=== PATIENT | male | born 1960 ===

== ENCOUNTER 2017-08-01 20:31 | Inpatient (IN) | payer SELFPAY ==
--- NOTE | 2017-08-01 21:30 | ED PDOC ---
HPI: Psych/Substance Abuse Time Seen by Provider: 08/01/17 20:43 Chief Complaint (Nursing): Alcohol Ingestion Chief Complaint (Provider): Alcohol ingestion History Per: Patient History/Exam Limitations: no limitations Onset/Duration Of Symptoms: Hrs (today) Current Symptoms Are (Timing): Still Present Suicide/Self Injury Attempted (Context): None Modifying Factor(s): Alcohol Pain Scale Rating Of: 0 Associated Symptoms: denies: Suicidal Thoughts, Suicidal Plan Additional Complaint(s): Nick Newberry is a 56 year old male, with no significant past medical history , who was brought to the emergency department via EMS for public alcohol intoxication. Per EMS, patient was found sleeping on the street with a bottle of vodka next to him. He admits drinking alcohol yesterday, none today. He admits that he drinks daily. He denies any fever, chills, chest pain, shortness of breath, abdominal pain, nausea, vomit, or diarrhea. No further medical complaints. PMD: Kulwant Villafuerte Past Medical History Reviewed: Historical Data, Nursing Documentation, Vital Signs Vital Signs: Last Vital Signs Temp 98.4 F 08/01/17 20:37 Pulse 140 H 08/01/17 20:37 Resp 20 08/01/17 20:37 BP 130/94 H 08/01/17 20:37 Pulse Ox 99 08/01/17 20:37 - Medical History PMH: Anxiety, Depression - Surgical History Surgical History: No Surg Hx - Family History Family History: States: Unknown Family Hx - Home Medications Home Medications: Ambulatory Orders Medication Instructions Recorded Unobtainable 02/24/16 - Allergies Allergies/Adverse Reactions: Allergies Allergy/AdvReac Type Severity Reaction Status Date / Time No Known Allergies Allergy Verified 02/24/16 06:30 Review of Systems ROS Statement: Except As Marked, All Systems Reviewed And Found Negative Constitutional: Negative for: Fever, Chills Cardiovascular: Negative for: Chest Pain Respiratory: Negative for: Shortness of Breath Gastrointestinal: Negative for: Nausea, Vomiting, Abdominal Pain, Diarrhea Physical Exam - Reviewed Nursing Documentation Reviewed: Yes Vital Signs Reviewed: Yes - Physical Exam Comments: GENERAL APPEARANCE: Patient is awake, alert, oriented x 3, in no acute distress. Ill kempt with ETOH odor noted. No slurred speech. SKIN: Warm, dry; (-) cyanosis HEAD: (+) hematoma to the occipital scalp, (-) scalp tenderness. EYES: (-) conjunctival pallor, (-) scleral icterus, (-) nystagmus. ENMT: Mucous membranes dry. Airway patent: (-) stridor. NECK: (-) tenderness, (-) stiffness, (-) lymphadenopathy. CHEST AND RESPIRATORY: (-) rales, (-) rhonchi, (-) wheezes; breath sounds equal. CARDIAC : (+) Tachycardic. ABDOMEN: Soft, (-) distention, (-) tenderness, (-) guarding. EXTREMITIES : (+) FROM, (+) fine tremors noted to b/l hands. (+) Distal pulses. NEURO AND PSYCH: Mental status as above.Affect: Calm and cooperative. stull hewer: Intact. Pupils equal and reactive; EOMI; (-) facial asymmetry; tongue and uvula midline. Strength symmetric. Gait is unsteady. - Laboratory Results Result Diagrams: 08/01/17 22:38 08/01/17 22:38 - ECG O2 Sat by Pulse Oximetry: 99 (RA) Pulse Ox Interpretation: Normal Medical Decision Making Medical Decision Making: Previous records reviewed, patient has been in the ER for ETOH intoxication. Initial Impression: Alcohol withdrawal Initial Plan: --Labs --CT head --IV --media monitor --Ativan 1 mg IV --Banana bag IV --UA --UDS --reevaluation Patient noted to have a hematoma to the occipital scalp, he admits that he fell earlier today, unable to elaborate how, when and why he fell. CT head ordered. Labs reviewed : etoh is 372, LFT's mildly elevated, pt noted to have an anion gap. UA & UDS pending. On reevaluation patient remains AAOx3 in no acute distress. VS : P 134 BP 166/ 121 O2sat 93%RA. ER MD Dr. Salinas made aware of labs, vitals and patient's status. CT head results still pending. Case endorsed to ER MD Dr. Salinas at [phone]. ~ Scribe Attestation: Documented by Flaco Costa, acting as a scribe for Lorrie Saunders PA-C. Provider Scribe Attestation: All medical record entries made by the Scribe were at my direction and personally dictated by me. I have reviewed the chart and agree that the record accurately reflects my personal performance of the history, physical exam, medical decision making, and the department course for this patient. I have also personally directed, reviewed, and agree with the discharge instructions and disposition. Disposition - Clinical Impression Clinical Impression: Alcohol abuse with intoxication - Disposition Disposition: Transfer of Care (to Dr. Salinas) Disposition Time: 23:30 Condition: FAIR Forms: [facility] ([place]) - PA / [employer]NER / Resident Statement MD/DO has reviewed & agrees with the documentation as recorded.
[2017-08-01] MEDS ORDERED: Multivitamin (MVI) 10 ML, Thiamine 100 MG, Folic Acid 1 MG in Sodium Chloride 0.9% 1,00... IV ONE (21:56)
[2017-08-01 22:41] LABS: BASO % 0.4 % (0.0-2.0); HEMOGLOBIN 15.3 g/dL (12.0-18.0); LYMPH # 0.6 K/uL (1.0-4.3); LYMPH % 5.4 % (20.0-40.0); MEAN CELL VOLUME 88.8 fl (80.0-94.0); MEAN CORPUSCULAR HEMOGLOBIN 30.6 pg (27.0-31.0); MEAN CORPUSCULAR HGB CONC 34.4 g/dL (33.0-37.0); MEAN PLATELET VOLUME 8.9 fl (7.2-11.7); MONO # 0.5 K/uL (0.0-0.8); MONO % 4.2 % (0.0-10.0); NEUT # 10.5 K/uL (1.8-7.0); NRBC % 0.1 % (0.0-0.0); PLATELET COUNT 205 K/uL (130-400); RBC 5.01 Mil/uL (4.40-5.90); RED CELL DISTRIBUTION WIDTH 16.1 % (11.5-14.5); WHITE BLOOD COUNT 11.7 K/uL (4.8-10.8)
[2017-08-01 23:04] LABS: ALB/GLOB RATIO 1.4 (1.0-2.1); ALBUMIN 4.7 g/dL (3.5-5.0); ALT/SGPT 110 U/L (21-72); AST/SGOT 151 U/L (17-59); BLOOD UREA NITROGEN 5 mg/dl (9-20); GFR AFRICAN-AMERICAN > 60; GFR NON-AFRICAN AMERICAN > 60
[2017-08-01 23:09] LABS: LYMPHOCYTE 6 % (20-50); MONOCYTE 2 % (0-10); NEUTROPHIL 92 % (42-75); PLATELET ESTIMATE NORMAL (NORMAL); TOTAL CELLS COUNTED 100
[2017-08-01] MEDS ORDERED: Sodium Chloride 0.9% 1,000 ML IV ONE (23:15)
--- NOTE | 2017-08-01 23:36 | CT ---
EXAM: CT Head Without Intravenous Contrast CLINICAL HISTORY: 56 years old, male; Injury or trauma; Fall; Initial encounter; Concussion / head injury; Consciousness not specified; Injury details: Patient found on street, [facility] TECHNIQUE: Axial computed tomography images of the head/brain without intravenous contrast. All CT scans at this facility use one or more dose reduction techniques, viz.: automated exposure control; ma/kV adjustment per patient size (including targeted exams where dose is matched to indication; i.e. head); or iterative reconstruction technique. Coronal and sagittal reformatted images were created and reviewed. COMPARISON: CT HEAD OR BRAIN W/O CONT 2013-06-02 10:50 FINDINGS: Limitations: Motion artifact - mild. Brain: Minimal atrophy. No definite intracranial hemorrhage. No mass. Mild encephalomalacia within left parietal region. No definite edema. Ventricles: No hydrocephalus. Bones/joints: No acute fracture. Craniotomy. Soft tissues: RIGHT parietal soft tissue swelling. Punctate calcification or foreign body along soft tissue swelling. Sinuses: Scattered minimal mucosal thickening. Mastoid air cells: No mastoid effusion. Orbits: Unremarkable as visualized. IMPRESSION: 1. No definite intracranial hemorrhage. 2. Incidental/non-acute findings are described above.
[2017-08-02 00:14] LABS: BENZODIAZEPINES, UR NEGATIVE (NEGATIVE)
[2017-08-02 00:25] LABS: SQUAMOUS EPITHIAL < 1 /hpf (0-5); URINE BACTERIA RARE (<OCC); URINE BILIRUBIN NEGATIVE (NEGATIVE); URINE CLARITY CLEAR (Clear); URINE COLOR COLORLESS (YELLOW); URINE GLUCOSE (UA) NEG (Normal); URINE LEUKOCYTE ESTERASE NEG Leu/uL (Negative); URINE NITRATE NEGATIVE (NEGATIVE); URINE PROTEIN NEGATIVE (NEGATIVE); URINE UROBILINOGEN 0.2-1.0 mg/dL (0.2-1.0)
[2017-08-02 00:26] LABS: BARBITURATES, UR NEGATIVE (NEGATIVE); OPIATES, UR NEGATIVE (NEGATIVE); PHENCYCLIDINE, UR NEGATIVE (NEGATIVE)
[2017-08-02 00:28] LABS: URINE BLOOD NEGATIVE (NEGATIVE)
--- NOTE | 2017-08-02 01:00 | CT ---
EXAM: CT Cervical Spine Without Intravenous Contrast CLINICAL HISTORY: 56 years old, male; Injury or trauma; Fall; Initial encounter; Blunt trauma TECHNIQUE: Axial computed tomography images of the cervical spine without intravenous contrast. All CT scans at this facility use one or more dose reduction techniques, viz.: automated exposure control; ma/kV adjustment per patient size (including targeted exams where dose is matched to indication; i.e. head); or iterative reconstruction technique. Coronal and sagittal reformatted images were created and reviewed. COMPARISON: No relevant prior studies available. FINDINGS: Vertebrae: No acute fracture. Facet osteoarthrosis within upper thoracic spine. Discs/spinal canal/neural foramina: Early degenerative disc disease within mid and lower cervical spine. No significant central canal stenosis. Mild neuroforaminal narrowing within lower cervical spine. Soft tissues: Unremarkable. Esophagus: Mild mural thickening versus underdistention proximal to midesophagus. Lung apices: Unremarkable as visualized. IMPRESSION: 1. No fracture. 2. Incidental/non-acute findings are described above.
[2017-08-02 06:19] LABS: HEMOGLOBIN 12.9 g/dL (12.0-18.0); MEAN CORPUSCULAR HEMOGLOBIN 30.3 pg (27.0-31.0); MEAN CORPUSCULAR HGB CONC 33.7 g/dL (33.0-37.0); RBC 4.27 Mil/uL (4.40-5.90); RED CELL DISTRIBUTION WIDTH 16.1 % (11.5-14.5)
[2017-08-02] MEDS: Dextrose 5%/0.9% NS 1,000 ML IV SCH ×2 (06:26→15:18)
[2017-08-02 06:53] LABS: ALB/GLOB RATIO 1.3 (1.0-2.1); ALBUMIN 3.5 g/dL (3.5-5.0); ALT/SGPT 99 U/L (21-72); AST/SGOT 91 U/L (17-59); BLOOD UREA NITROGEN 3 mg/dl (9-20); CALCIUM 7.8 mg/dL (8.4-10.2); GFR AFRICAN-AMERICAN > 60; GFR NON-AFRICAN AMERICAN > 60; MAGNESIUM 1.8 MG/DL (1.6-2.3)
[2017-08-02] MEDS: Thiamine 100 mg/ml Inj IM SCH (08:50)
[2017-08-02] MEDS: Enoxaparin 40 mg Syringe SC SCH (08:51)
[2017-08-02] MEDS: Pantoprazole 40 mg EC Tab PO SCH (08:51)
--- NOTE | 2017-08-02 09:21 | RAD ---
HISTORY: tachy COMPARISON: Chest radiograph dated 06/02/2013 FINDINGS: LUNGS: No active pulmonary disease. PLEURA: No significant pleural effusion identified, no pneumothorax apparent. CARDIOVASCULAR: Normal. OSSEOUS STRUCTURES: Unchanged. VISUALIZED UPPER ABDOMEN: Normal. OTHER FINDINGS: None. IMPRESSION: No active disease.
--- NOTE | 2017-08-02 18:11 | CP.PCM.HP ---
History of Present Illness - History of Present Illness History of Present Illness: a 56 year old male, with no significant past medical history, who was brought to the emergency department via EMS for public alcohol intoxication. Per EMS, patient was found sleeping on the street with a bottle of vodka next to him. He admits drinking alcohol yesterday, none today. He admits that he drinks daily. He denies any fever, chills, chest pain, shortness of breath, abdominal pain, nausea, vomit, or diarrhea. No further medical complaints. Present on Admission - Present on Admission Any Indicators Present on Admission: No Review of Systems - Review of Systems All systems: reviewed and no additional remarkable complaints except Past Patient History - Past Medical History & Family History Past Medical History?: Yes - Past Social History Smoking Status: Never Smoked - CARDIAC Hx Cardiac Disorders: No - PULMONARY Hx Respiratory Disorders: No - NEUROLOGICAL Hx Neurological Disorder: No - HEENT Hx HEENT Problems: No - RENAL Hx Chronic Kidney Disease: No - ENDOCRINE/METABOLIC Hx Endocrine Disorders: No - HEMATOLOGICAL/ONCOLOGICAL Hx Blood Disorders: No - INTEGUMENTARY Hx Dermatological Problems: No - MUSCULOSKELETAL/RHEUMATOLOGICAL Hx Falls: Yes - GASTROINTESTINAL Hx Gastrointestinal Disorders: No - GENITOURINARY/GYNECOLOGICAL Hx Genitourinary Disorders: No - PSYCHIATRIC Hx Substance Use: No - SURGICAL HISTORY Hx Surgeries: Yes Other/Comment: brain tumor removed 2 years ago - ANESTHESIA Hx Anesthesia: Yes Hx Anesthesia Reactions: No Meds Allergies/Adverse Reactions: Allergies Allergy/AdvReac Type Severity Reaction Status Date / Time No Known Allergies Allergy Verified 02/24/16 06:30 Physical Exam - Constitutional Appears: Well - Head Exam Head Exam: ATRAUMATIC, NORMAL INSPECTION, NORMOCEPHALIC - Eye Exam Eye Exam: EOMI, Normal appearance, PERRL Pupil Exam: NORMAL ACCOMODATION, PERRL - ENT Exam ENT Exam: Mucous Membranes Moist, Normal Exam - Neck Exam Neck exam: Positive for: Normal Inspection - Respiratory Exam Respiratory Exam: Clear to Auscultation Bilateral, NORMAL BREATHING PATTERN - Cardiovascular Exam Cardiovascular Exam: REGULAR RHYTHM - GI/Abdominal Exam GI & Abdominal Exam: Normal Bowel Sounds, Soft. absent: Tenderness - Extremities Exam Extremities exam: Positive for: normal inspection - Back Exam Back exam: NORMAL INSPECTION - Neurological Exam Neurological exam: Alert, CN II-XII Intact, Normal Gait, Oriented x3, Reflexes Normal - Psychiatric Exam Psychiatric exam: Normal Affect, Normal Mood - Skin Skin Exam: Dry, Intact, Normal Color, Warm Results - Vital Signs Recent Vital Signs: Last Vital Signs Temp 98.1 F 08/02/17 15:33 Pulse 112 H 08/02/17 15:33 Resp 20 08/02/17 15:33 BP 143/83 08/02/17 15:33 Pulse Ox 97 08/02/17 15:33 - Labs Result Diagrams: 08/04/17 04:30 08/04/17 04:30 Labs: Laboratory Results - last 24 hr 08/01/17 08/01/17 08/01/17 22:38 22:38 22:51 WBC 11.7 H RBC 5.01 Hgb 15.3 Hct 44.5 MCV 88.8 MCH 30.6 MCHC 34.4 RDW 16.1 H Plt Count 205 MPV 8.9 Neut % (Auto) 90.0 H Lymph % (Auto) 5.4 L [place] % (Auto) 4.2 Eos % (Auto) 0.0 Baso % (Auto) 0.4 Neut # (Auto) 10.5 H Lymph # (Auto) 0.6 L [place] # (Auto) 0.5 Eos # (Auto) 0.0 Baso # (Auto) 0.0 Neutrophils % (Manual) 92 H Lymphocytes % (Manual) 6 L Monocytes % (Manual) 2 Platelet Estimate Normal RBC Morphology Normal Sodium 140 Potassium 4.4 Chloride 92 L Carbon Dioxide 21 L Anion Gap 31 H BUN 5 L Creatinine 0.6 L Est GFR ( Amer) > 60 Est GFR (Non-Af Amer) > 60 POC Glucose (mg/dL) 85 Random Glucose 97 Calcium 9.0 Magnesium Total Bilirubin 1.1 AST 151 H ALT 110 H Alkaline Phosphatase 167 H Total Protein 8.1 Albumin 4.7 Globulin 3.4 Albumin/Globulin Ratio 1.4 Urine Color Urine Clarity Urine pH Ur Specific [place] Urine Protein Urine Glucose (UA) Urine Ketones Urine Blood Urine Nitrate Urine Bilirubin Urine Urobilinogen Ur Leukocyte Esterase Urine RBC (Auto) Ur Squamous Epith Cells Urine Bacteria Urine Opiates Screen Urine Methadone Screen Ur Barbiturates Screen Ur Phencyclidine Scrn Ur Amphetamines Screen U Benzodiazepines Scrn U Oth Cocaine Metabols U Cannabinoids Screen Alcohol, Quantitative 372 H* 02/26/18 02/26/18 02/27/18 23:55 23:55 05:40 WBC RBC Hgb Hct MCV MCH MCHC RDW Plt Count MPV Neut % (Auto) Lymph % (Auto) [place] % (Auto) Eos % (Auto) Baso % (Auto) Neut # (Auto) Lymph # (Auto) [place] # (Auto) Eos # (Auto) Baso # (Auto) Neutrophils % (Manual) Lymphocytes % (Manual) Monocytes % (Manual) Platelet Estimate RBC Morphology Sodium 142 Potassium 3.7 Chloride 100 Carbon Dioxide 24 Anion Gap 22 H BUN 3 L Creatinine 0.6 L Est GFR ( Amer) > 60 Est GFR (Non-Af Amer) > 60 POC Glucose (mg/dL) Random Glucose 85 Calcium 7.8 L Magnesium 1.8 Total Bilirubin 0.7 AST 91 H D ALT 99 H Alkaline Phosphatase 109 Total Protein 6.2 L Albumin 3.5 D Globulin 2.7 Albumin/Globulin Ratio 1.3 Urine Color Colorless Urine Clarity Clear Urine pH 7.0 Ur Specific [place] < 1.005 Urine Protein Negative Urine Glucose (UA) Neg Urine Ketones Negative Urine Blood Negative Urine Nitrate Negative Urine Bilirubin Negative Urine Urobilinogen 0.2-1.0 Ur Leukocyte Esterase Neg Urine RBC (Auto) < 1 Ur Squamous Epith Cells < 1 Urine Bacteria Rare Urine Opiates Screen Negative Urine Methadone Screen Negative Ur Barbiturates Screen Negative Ur Phencyclidine Scrn Negative Ur Amphetamines Screen Negative U Benzodiazepines Scrn Negative U Oth Cocaine Metabols Negative U Cannabinoids Screen Negative Alcohol, Quantitative 08/02/17 05:40 WBC 8.0 RBC 4.27 L Hgb 12.9 D Hct 38.4 MCV 90.0 MCH 30.3 MCHC 33.7 RDW 16.1 H Plt Count 150 MPV Neut % (Auto) Lymph % (Auto) [place] % (Auto) Eos % (Auto) Baso % (Auto) Neut # (Auto) Lymph # (Auto) [place] # (Auto) Eos # (Auto) Baso # (Auto) Neutrophils % (Manual) Lymphocytes % (Manual) Monocytes % (Manual) Platelet Estimate RBC Morphology Sodium Potassium Chloride Carbon Dioxide Anion Gap BUN Creatinine Est GFR ( Amer) Est GFR (Non-Af Amer) POC Glucose (mg/dL) Random Glucose Calcium Magnesium Total Bilirubin AST ALT Alkaline Phosphatase Total Protein Albumin Globulin Albumin/Globulin Ratio Urine Color Urine Clarity Urine pH Ur Specific [place] Urine Protein Urine Glucose (UA) Urine Ketones Urine Blood Urine Nitrate Urine Bilirubin Urine Urobilinogen Ur Leukocyte Esterase Urine RBC (Auto) Ur Squamous Epith Cells Urine Bacteria Urine Opiates Screen Urine Methadone Screen Ur Barbiturates Screen Ur Phencyclidine Scrn Ur Amphetamines Screen U Benzodiazepines Scrn U Oth Cocaine Metabols U Cannabinoids Screen Alcohol, Quantitative Assessment & Plan (1) Alcohol abuse with intoxication Assessment and Plan: Librium/Ativan/Thiamine/Folic Acid/IVF Monitor Electrolytes Status: Acute Priority: High
[2017-08-03] MEDS: Dextrose 5%/0.9% NS 1,000 ML IV SCH
[2017-08-03] MEDS: Thiamine 100 mg/ml Inj IM SCH (10:15)
[2017-08-03] MEDS: Enoxaparin 40 mg Syringe SC SCH (10:16)
[2017-08-03] MEDS: Pantoprazole 40 mg EC Tab PO SCH (10:16)
[2017-08-03 10:59] LABS: ALB/GLOB RATIO 1.4 (1.0-2.1); ALBUMIN 3.8 g/dL (3.5-5.0); ALT/SGPT 91 U/L (21-72); AST/SGOT 75 U/L (17-59); BLOOD UREA NITROGEN 4 mg/dl (9-20); GFR AFRICAN-AMERICAN > 60; GFR NON-AFRICAN AMERICAN > 60
[2017-08-03] MEDS: Potassium Chloride 20 mEq ER Tab PO SCH (13:00)
[2017-08-03] MEDS: Potassium Chl 20mEq & D5W 1,000 ML IV SCH ×2 (13:15→21:31)
[2017-08-03] MEDS ORDERED: levETIRAcetam 500 MG in Sodium Chloride 0.9% 100 ML IVPB ONE (19:06)
[2017-08-04 05:50] LABS: HEMOGLOBIN 13.9 g/dL (12.0-18.0); MEAN CELL VOLUME 90.6 fl (80.0-94.0); MEAN CORPUSCULAR HEMOGLOBIN 30.7 pg (27.0-31.0); MEAN CORPUSCULAR HGB CONC 33.8 g/dL (33.0-37.0); RBC 4.55 Mil/uL (4.40-5.90); WHITE BLOOD COUNT 6.4 K/uL (4.8-10.8)
[2017-08-04 06:40] LABS: BLOOD UREA NITROGEN 5 mg/dl (9-20); CALCIUM 9.3 mg/dL (8.4-10.2); GFR AFRICAN-AMERICAN > 60; GFR NON-AFRICAN AMERICAN > 60
[2017-08-04] MEDS: Potassium Chl 20mEq & D5W 1,000 ML IV SCH (07:47)
[2017-08-04] MEDS: levETIRAcetam 100 mg/ml (5ml) Oral Syringe PO SCH ×2 (09:40→17:42)
[2017-08-04] MEDS: Enoxaparin 40 mg Syringe SC SCH (09:42)
[2017-08-04] MEDS: Potassium Chloride 20 mEq ER Tab PO SCH (09:43)
[2017-08-04] MEDS: Pantoprazole 40 mg EC Tab PO SCH (09:45)
--- NOTE | 2017-08-04 22:08 | CP.PCM.PN ---
Subjective - Date & Time of Evaluation Date of Evaluation: 08/04/17 Time of Evaluation: 17:00 - Subjective Subjective: Feeling better. still shaky Objective - Vital Signs/Intake and Output Vital Signs (last 24 hours): Temp Pulse Resp BP Pulse Ox 98.3 F 104 H 19 112/63 98 08/04/17 21:15 08/04/17 21:15 08/04/17 21:15 08/04/17 21:15 08/04/17 21:15 - Medications Medications: Current Medications Chlordiazepoxide (Librium) 25 mg PO Q8 [facility] Last Admin: 08/04/17 17:44 Dose: 25 mg Clonidine HCl (Catapres) 0.1 mg PO BID [facility] Last Admin: 08/04/17 17:42 Dose: 0.1 mg Enoxaparin Sodium (Lovenox) 40 mg SC DAILY [facility] PRN Reason: Protocol Last Admin: 08/04/17 09:42 Dose: 40 mg Folic Acid 1 mg/ Sodium (Chloride) 100.2 mls @ 60 mls/hr IVPB DAILY [facility] Last Admin: 08/04/17 09:47 Dose: 60 mls/hr Levetiracetam (Keppra) 500 mg PO BID [facility] Last Admin: 08/04/17 17:42 Dose: 500 mg Lorazepam (Ativan) 2 mg IVP Q4 PRN PRN Reason: Seizure Activity,agitation Last Admin: 08/03/17 17:24 Dose: 2 mg Ondansetron HCl (Zofran Inj) 4 mg IVP Q6 PRN PRN Reason: Nausea/Vomiting Last Admin: 08/02/17 15:17 Dose: 4 mg Pantoprazole Sodium (Protonix Ec Tab) 40 mg PO DAILY [facility] Last Admin: 08/04/17 09:45 Dose: 40 mg Potassium Chloride (K-Dur 20 Meq Er Tab) 20 meq PO DAILY [facility] Last Admin: 08/04/17 09:43 Dose: 20 meq Thiamine HCl (Vitamin B1 Tab) 100 mg PO DAILY [facility] Last Admin: 08/04/17 09:45 Dose: 100 mg - Labs Labs: 08/04/17 04:30 08/04/17 04:30 Assessment and Plan (1) Alcohol abuse with intoxication Status: Acute
--- NOTE | 2017-08-05 00:09 | CP.PCM.PN ---
Subjective - Date & Time of Evaluation Date of Evaluation: 08/03/17 Time of Evaluation: 16:50 - Subjective Subjective: Confused. Attempted to leave the Hospital and on 1 to 1 obs Objective - Vital Signs/Intake and Output Vital Signs (last 24 hours): Temp Pulse Resp BP Pulse Ox 98.3 F 104 H 19 112/63 98 08/04/17 21:15 08/04/17 21:15 08/04/17 21:15 08/04/17 21:15 08/04/17 21:15 - Medications Medications: Current Medications Chlordiazepoxide (Librium) 25 mg PO Q8 [facility] Last Admin: 08/04/17 17:44 Dose: 25 mg Clonidine HCl (Catapres) 0.1 mg PO BID [facility] Last Admin: 08/04/17 17:42 Dose: 0.1 mg Enoxaparin Sodium (Lovenox) 40 mg SC DAILY [facility] PRN Reason: Protocol Last Admin: 08/04/17 09:42 Dose: 40 mg Folic Acid 1 mg/ Sodium (Chloride) 100.2 mls @ 60 mls/hr IVPB DAILY [facility] Last Admin: 08/04/17 09:47 Dose: 60 mls/hr Levetiracetam (Keppra) 500 mg PO BID [facility] Last Admin: 08/04/17 17:42 Dose: 500 mg Lorazepam (Ativan) 2 mg IVP Q4 PRN PRN Reason: Seizure Activity,agitation Last Admin: 08/03/17 17:24 Dose: 2 mg Ondansetron HCl (Zofran Inj) 4 mg IVP Q6 PRN PRN Reason: Nausea/Vomiting Last Admin: 08/02/17 15:17 Dose: 4 mg Pantoprazole Sodium (Protonix Ec Tab) 40 mg PO DAILY [facility] Last Admin: 08/04/17 09:45 Dose: 40 mg Potassium Chloride (K-Dur 20 Meq Er Tab) 20 meq PO DAILY [facility] Last Admin: 08/04/17 09:43 Dose: 20 meq Thiamine HCl (Vitamin B1 Tab) 100 mg PO DAILY [facility] Last Admin: 08/04/17 09:45 Dose: 100 mg - Labs Labs: 08/04/17 04:30 08/04/17 04:30 Assessment and Plan (1) Alcohol abuse with intoxication Assessment & Plan: Continue Current care Status: Acute
[2017-08-05] MEDS: Potassium Chloride 20 mEq ER Tab PO SCH (08:51)
[2017-08-05] MEDS: Enoxaparin 40 mg Syringe SC SCH (08:52)
[2017-08-05] MEDS: levETIRAcetam 100 mg/ml (5ml) Oral Syringe PO SCH (08:52)
[2017-08-05] MEDS: Pantoprazole 40 mg EC Tab PO SCH (08:53)
--- NOTE | 2017-08-05 18:54 | CP.PCM.PN ---
Subjective - Date & Time of Evaluation Date of Evaluation: 08/05/17 Time of Evaluation: 19:10 - Subjective Subjective: No complaint Objective - Vital Signs/Intake and Output Vital Signs (last 24 hours): Temp Pulse Resp BP Pulse Ox 98.5 F 94 H 20 116/80 97 08/05/17 16:27 08/05/17 16:27 08/05/17 16:27 08/05/17 16:27 08/05/17 16:27 - Medications Medications: Current Medications Chlordiazepoxide (Librium) 10 mg PO Q8 PRN PRN Reason: Agitation Clonidine HCl (Catapres) 0.1 mg PO BID [facility] Last Admin: 08/05/17 17:08 Dose: 0.1 mg Enoxaparin Sodium (Lovenox) 40 mg SC DAILY [facility] PRN Reason: Protocol Last Admin: 08/05/17 08:52 Dose: 40 mg Levetiracetam (Keppra) 500 mg PO BID [facility] Last Admin: 08/05/17 08:52 Dose: 500 mg Lorazepam (Ativan) 2 mg IVP Q4 PRN PRN Reason: Seizure Activity,agitation Last Admin: 08/03/17 17:24 Dose: 2 mg Ondansetron HCl (Zofran Inj) 4 mg IVP Q6 PRN PRN Reason: Nausea/Vomiting Last Admin: 08/02/17 15:17 Dose: 4 mg Pantoprazole Sodium (Protonix Ec Tab) 40 mg PO DAILY [facility] Last Admin: 08/05/17 08:53 Dose: 40 mg Potassium Chloride (K-Dur 20 Meq Er Tab) 20 meq PO DAILY [facility] Last Admin: 08/05/17 08:51 Dose: 20 meq Thiamine HCl (Vitamin B1 Tab) 100 mg PO DAILY [facility] Last Admin: 08/05/17 08:53 Dose: 100 mg - Labs Labs: 08/04/17 04:30 08/04/17 04:30 Assessment and Plan (1) Alcohol abuse with intoxication Assessment & Plan: Continue Current Care Status: Acute
[2017-08-06 00:03] VITALS: RESP 18
[2017-08-06] MEDS: Enoxaparin 40 mg Syringe SC SCH (08:09)
[2017-08-06] MEDS: levETIRAcetam 100 mg/ml (5ml) Oral Syringe PO SCH (08:10)
[2017-08-06] MEDS: Pantoprazole 40 mg EC Tab PO SCH (08:10)
[2017-08-06] MEDS: Potassium Chloride 20 mEq ER Tab PO SCH (08:11)
--- NOTE | 2017-08-06 11:16 | CP.PCM.DIS ---
Provider - Provider Date of Admission: 08/02/17 00:06 Attending physician: Tenzin Winter MD Time Spent in preparation of Discharge (in minutes): 30 Diagnosis - Discharge Diagnosis (1) Alcohol abuse with intoxication Status: Acute Priority: High Hospital Course - Lab Results Lab Results: Most Recent Lab Values WBC 6.4 K/uL (4.8-10.8) 08/04/17 04:30 RBC 4.55 Mil/uL (4.40-5.90) 08/04/17 04:30 Hgb 13.9 g/dL (12.0-18.0) 08/04/17 04:30 Hct 41.2 % (35.0-51.0) 08/04/17 04:30 MCV 90.6 fl (80.0-94.0) 08/04/17 04:30 MCH 30.7 pg (27.0-31.0) 08/04/17 04:30 MCHC 33.8 g/dL (33.0-37.0) 08/04/17 04:30 RDW 16.0 % (11.5-14.5) H 08/04/17 04:30 Plt Count 98 K/uL (130-400) L D 08/04/17 04:30 MPV 8.9 fl (7.2-11.7) 08/01/17 22:38 Neut % (Auto) 90.0 % (50.0-75.0) H 08/01/17 22:38 Lymph % (Auto) 5.4 % (20.0-40.0) L 08/01/17 22:38 [place] % (Auto) 4.2 % (0.0-10.0) 08/01/17 22:38 Eos % (Auto) 0.0 % (0.0-4.0) 08/01/17 22:38 Baso % (Auto) 0.4 % (0.0-2.0) 08/01/17 22:38 Neut # (Auto) 10.5 K/uL (1.8-7.0) H 08/01/17 22:38 Lymph # (Auto) 0.6 K/uL (1.0-4.3) L 08/01/17 22:38 [place] # (Auto) 0.5 K/uL (0.0-0.8) 08/01/17 22:38 Eos # (Auto) 0.0 K/uL (0.0-0.7) 08/01/17 22:38 Baso # (Auto) 0.0 K/uL (0.0-0.2) 08/01/17 22:38 Neutrophils % (Manual) 92 % (42-75) H 08/01/17 22:38 Lymphocytes % (Manual) 6 % (20-50) L 08/01/17 22:38 Monocytes % (Manual) 2 % (0-10) 08/01/17 22:38 Platelet Estimate Normal (NORMAL) 08/01/17 22:38 RBC Morphology Normal (NORMAL) 08/01/17 22:38 Sodium 141 mmol/l (132-148) 08/04/17 04:30 Potassium 4.2 MMOL/L (3.6-5.0) 08/04/17 04:30 Chloride 100 mmol/L (98-107) 08/04/17 04:30 Carbon Dioxide 28 mmol/L (22-30) 08/04/17 04:30 Anion Gap 17 (10-20) 08/04/17 04:30 BUN 5 mg/dl (9-20) L 08/04/17 04:30 Creatinine 0.6 mg/dl (0.8-1.5) L 08/04/17 04:30 Est GFR ( Amer) > 60 08/04/17 04:30 Est GFR (Non-Af Amer) > 60 08/04/17 04:30 POC Glucose (mg/dL) 85 mg/dL (65-110) 08/01/17 22:51 Random Glucose 86 mg/dL (75-110) 08/04/17 04:30 Calcium 9.3 mg/dL (8.4-10.2) 08/04/17 04:30 Magnesium 1.8 MG/DL (1.6-2.3) 08/02/17 05:40 Total Bilirubin 1.1 mg/dl (0.2-1.3) 08/03/17 10:20 AST 75 U/L (17-59) H 08/03/17 10:20 ALT 91 U/L (21-72) H 08/03/17 10:20 Alkaline Phosphatase 100 U/L (38-126) 08/03/17 10:20 Total Protein 6.7 G/DL (6.3-8.2) 08/03/17 10:20 Albumin 3.8 g/dL (3.5-5.0) 08/03/17 10:20 Globulin 2.8 gm/dL (2.2-3.9) 08/03/17 10:20 Albumin/Globulin Ratio 1.4 (1.0-2.1) 08/03/17 10:20 Urine Color Colorless (YELLOW) 08/01/17 23:55 Urine Clarity Clear (Clear) 08/01/17 23:55 Urine pH 7.0 (5.0-8.0) 08/01/17 23:55 Ur Specific [place] < 1.005 (1.003-1.030) 08/01/17 23:55 Urine Protein Negative mg/dL (NEGATIVE) 08/01/17 23:55 Urine Glucose (UA) Neg mg/dL (Normal) 08/01/17 23:55 Urine Ketones Negative mg/dL (NEGATIVE) 08/01/17 23:55 Urine Blood Negative (NEGATIVE) 08/01/17 23:55 Urine Nitrate Negative (NEGATIVE) 08/01/17 23:55 Urine Bilirubin Negative (NEGATIVE) 08/01/17 23:55 Urine Urobilinogen 0.2-1.0 mg/dL (0.2-1.0) 08/01/17 23:55 Ur Leukocyte Esterase Neg [place]/uL (Negative) 08/01/17 23:55 Urine RBC (Auto) < 1 /hpf (0-3) 08/01/17 23:55 Ur Squamous Epith Cells < 1 /hpf (0-5) 08/01/17 23:55 Urine Bacteria Rare (<OCC) 08/01/17 23:55 Urine Opiates Screen Negative (NEGATIVE) 08/01/17 23:55 Urine Methadone Screen Negative (NEGATIVE) 08/01/17 23:55 Ur Barbiturates Screen Negative (NEGATIVE) 08/01/17 23:55 Ur Phencyclidine Scrn Negative (NEGATIVE) 08/01/17 23:55 Ur Amphetamines Screen Negative (NEGATIVE) 08/01/17 23:55 U Benzodiazepines Scrn Negative (NEGATIVE) 08/01/17 23:55 U Oth Cocaine Metabols Negative (NEGATIVE) 08/01/17 23:55 U Cannabinoids Screen Negative (NEGATIVE) 08/01/17 23:55 Alcohol, Quantitative 372 mg/dl (0-10) H* 08/01/17 22:38 Discharge Exam - Head Exam Head Exam: ATRAUMATIC, NORMAL INSPECTION, NORMOCEPHALIC Discharge Plan - Discharge Medications Prescriptions: levETIRAcetam [Keppra] 500 mg PO BID 30 Days tab - Follow Up Plan Condition: FAIR Disposition: HOME/ ROUTINE Instructions: Alcohol Abuse and Alcoholism (DC), Effects of Alcohol on Your Health Referrals: Tenzin Winter MD [Staff Provider] -
[2017-08-06 12:08] VITALS: BP 127/81; PULSE 94; TEMP 97.9; O2SAT 100
== END 2017-08-06 14:15 | disposition home or self-care (01) | DRG 897 ==
LOC: H.ER 20:31 → H.ERHOLD 08-02 00:06 → H.TEL 08-02 04:20
PROVIDERS: ADMIT Internal Medicine; ATTEND Internal Medicine
DX: F10.229 Alcohol dependence with intoxication, unspecified (principal); F10.239 Alcohol dependence with withdrawal, unspecified; D43.2 Neoplasm of uncertain behavior of brain, unspecified; F32.9 Major depressive disorder, single episode, unspecified; F41.9 Anxiety disorder, unspecified; Y90.8 Blood alcohol level of 240 mg/100 ml or more